=== PATIENT | male | born 1950 | race Caucasian/White ===

== ENCOUNTER 2016-08-04 12:08 | Emergency (ER) | payer OTHER ==
[~2016-08-04] VITALS: Ht 182.9 cm; Wt 96.0 kg
[~2016-08-04 12:08] MED LIST: DICL75 PO; HYDR-3533 PO
[2016-08-04 12:09] VITALS: BP 172/97; PULSE 87; RESP 15; TEMP 97.9; O2SAT 98
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
[2016-08-04] MEDS ORDERED: CYCL5TAB PO (12:30)
[2016-08-04] MEDS ORDERED: ORPHENADRINE INJ 60 MG/2 ML AMP IM ONE (12:30)
[2016-08-04] MEDS ORDERED: MEDR4PAK PO (12:30)
== END 2016-08-04 13:02 | disposition home or self-care (01) ==
LOC: NEPK 12:08
DX: M79.604 Pain in right leg (principal); M54.31 Sciatica, right side; Z72.0 Tobacco use
CPT/HCPCS: 96372; 99283; J2360

== ENCOUNTER 2016-08-10 13:21 | Emergency (ER) | payer OTHER ==
[~2016-08-10] VITALS: Ht 182.9 cm; Wt 97.0 kg
[~2016-08-10 13:21] MED LIST changes: +CYCL5TAB PO; -DICL75 PO; -HYDR-3533 PO; +MEDR4PAK PO
[2016-08-10 13:24] VITALS: BP 175/104; PULSE 104; RESP 20; TEMP 97.5; O2SAT 97
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
[2016-08-10 15:18] VITALS: BP 194/117; PULSE 80; RESP 16; TEMP 97.8; O2SAT 98
[2016-08-10 16:00] VITALS: BP 164/78; PULSE 94; RESP 17; O2SAT 97
--- NOTE | 2016-08-10 16:20 | RADRPT ---
EXAM DATE/TIME: 08/10/2016 15:50 [facility] COMPARISON: US LEG RIGHT VENOUS DOPPLER, January 31, 2016, 23:12. INDICATIONS : Right leg pain. MEDICAL HISTORY : Right leg pain. SURGICAL HISTORY : None. ENCOUNTER: Initial ACUITY: 3 weeks PAIN SCORE: 5/10 LOCATION: Right leg. TECHNIQUE: Venous ultrasound of the leg was performed from the inguinal ligament to the proximal calf. Real-patricio e, color Doppler and spectral tracing, compression and augmentation techniques were used. FINDINGS: There is normal compressibility of the deep venous system from the inguinal region to the proximal ca lf. No echogenic clot is seen in the lumen of the common femoral, femoral, popliteal, and posterior tibial veins. There is a normal response of the venous system to proximal and distal augmentation an d respiration. CONCLUSION: Negative exam with no evidence of deep venous thrombosis. Ry Rashid MD on August 10, 2016 at 16:18 Board Certified Radiologist. This report was verified electronically.
[2016-08-10] MEDS ORDERED: CYCL1TAB29 PO (16:57)
[2016-08-10] MEDS ORDERED: NAPR500 PO (16:57)
[2016-08-10] MEDS ORDERED: TRAM50TA PO (17:00)
[2016-08-10] MEDS ORDERED: ROBA500T PO (17:01)
--- NOTE | 2016-08-10 17:29 | RADRPT ---
EXAM DATE/TIME: 08/10/2016 15:38 [facility] COMPARISON: No previous studies available for comparison. INDICATIONS : Right knee pain with no injury. MEDICAL HISTORY : None. SURGICAL HISTORY : None. ENCOUNTER: Initial ACUITY: 3 weeks PAIN SCORE: 5/10 LOCATION: Right distal knee. FINDINGS: Four view examination of the right knee demonstrates no evidence of fracture or dislocation. Bony mi neralization is normal. The articular surfaces are intact. The suprapatellar soft tissues have a no rmal configuration. CONCLUSION: Unremarkable exam. Ry Rashid MD on August 10, 2016 at 17:27 Board Certified Radiologist. This report was verified electronically.
== END 2016-08-10 17:55 | disposition home or self-care (01) ==
LOC: NEPE 13:21
DX: M79.604 Pain in right leg (principal); M62.838 Other muscle spasm
CPT/HCPCS: 73564; 93971